=== PATIENT | male | born 1975 | race African-American/Black ===

== ENCOUNTER 2017-04-12 13:25 | Emergency (ER) | payer BC, OTHER ==
[~2017-04-12] VITALS: Ht 182.9 cm; Wt 128.4 kg
[~2017-04-12 13:25] MED LIST: ALBUTEROL17 GM INH; AMOXICILLIN PO; BACTRIM DS TABL1 TA1 PO; BACTRIM DS TABL1 TA2 PO; BENZONATATE PO; BLOOD PRESSURE; BP MED PO; CHOLESTEROL PILL; COLCRYS0.6 MG PO; DICLOFENAC PO; DICLOXAXILLIN250 MG PO; DOXYCYCLINE PO; FLEXERIL10 M1 PO; FLEXERIL10 MG PO; GUAIFENESIN-CO480 ML PO; HCTZ; HCTZ PO; HIGH BLOOD PRESSURE; HYDROCHLOROTHIA25 MG PO; INDOCIN SR75 MG PO; INDOMETHACIN25 MG PO; LISINOPRIL PO; LISINOPRIL10 MG PO; MOTRIN600 MG PO; NO MEDICATIONS; PANTOPRAZOLE SO40 MG PO; PERCOCET 5-3251 TAB PO; PHENERGAN W/CO120 ML PO; PREDNISONE10 MG PO; PRILOSEC PO; TUSSIONEX PENN473 ML PO; TYLENOL #3 PO; ULTRAM PO; VIBRAMYCIN100 M1 PO; VICODIN 5/1 TAB 5/50 PO; VICODIN 5/500 T1 TAB PO; VOLTAREN50 MG PO; VOLTAREN75 MG PO; ZITHROMAX PO; [UNRECOGNIZED DRUG - REMARK]
== END 2017-04-12 16:06 | disposition home or self-care (01) ==
LOC: CFTX 13:25 → CED 13:25 → CFTX 16:03
DX: S61.210A Laceration without foreign body of right index finger without damage to nail, initial encounter (principal); F17.200 Nicotine dependence, unspecified, uncomplicated; W26.0XXA Contact with knife, initial encounter; Y92.009 Unspecified place in unspecified non-institutional (private) residence as the place of occurrence of the external cause; Z23 Encounter for immunization
CPT/HCPCS: 12001; 90471; 90715; 99283

== ENCOUNTER 2017-04-21 16:15 | Emergency (ER) | payer BC, OTHER ==
[~2017-04-21] VITALS: Ht 182.9 cm; Wt 128.4 kg
== END 2017-04-21 17:05 | disposition home or self-care (01) ==
LOC: CED 16:15 → CFTX 16:15
DX: S61.210D Laceration without foreign body of right index finger without damage to nail, subsequent encounter (principal)
CPT/HCPCS: 99281

== ENCOUNTER 2017-06-01 20:06 | Emergency (ER) | payer BC, OTHER ==
[~2017-06-01] VITALS: Ht 188 cm; Wt 129.3 kg
== END 2017-06-01 23:25 | disposition home or self-care (01) ==
LOC: CED 20:06 → CFTX 20:06
DX: J02.9 Acute pharyngitis, unspecified (principal); R59.0 Localized enlarged lymph nodes; I10 Essential (primary) hypertension; K21.9 Gastro-esophageal reflux disease without esophagitis; J45.909 Unspecified asthma, uncomplicated; M10.9 Gout, unspecified; Z88.5 Allergy status to narcotic agent; F17.210 Nicotine dependence, cigarettes, uncomplicated
CPT/HCPCS: 87651; 99283

== ENCOUNTER 2017-06-02 09:09 | Emergency (ER) | payer BC, OTHER ==
[~2017-06-02] VITALS: Ht 182.9 cm; Wt 129.3 kg
--- NOTE | ~2017-06-02 | CT114 ---
[facility] A Service of [facility] RADIOLOGY TEXT RESULTS PATIENT: SEAN APARICIO LOCATION: [facility] : 75 UNIT #: [id number] AGE: [address]: Buffy Aponte MD SEX: M ORDER DR: [id number] [facility]. [place], [place] [address] [id number] E MR#: [id number] Acc #: [id number] NAME: SEAN APARICIO : 1975 SEX: M STUDY DATE/TIME: 06/02/2017 11:24 UNIT: [facility] ROOM: STUDY DESCRIPTION: CT Soft Tissue Neck W Cont Attending Physician: Buffy Aponte M.D. Ordering Physician: Buffy Aponte M.D. Primary Care Physician: Jefferson Harley M.D. MEDICAL IMAGING REPORT This report is preliminary unless electronic signature is present EXAM Soft tissue neck CT with contrast, 06/02/2017 PROCEDURE Axial contrast-enhanced soft tissue neck CT with multiplanar reformats. This CT exam was performed with one or more of the following radiation dose reduction techniques: automatic exposure control, adjustment of mA and/or kV according to patient size, and iterative reconstruction. COMPARISON Cervical spine CT dated 06/25/2010. CLINICAL HISTORY Left side submental pain and swelling for 2 days. FINDINGS There is soft tissue swelling and submental fat induration and there is slight asymmetric hyperdensity in the left submandibular salivary gland which appears perhaps slightly thickened. There is a tiny calcification in the anterior floor of the mouth on the left near the orifice of [place]'s duct. The parotid glands are normal and the right submandibular salivary gland is normal. No abnormal calcifications are seen along the course of the right [place]'s duct or either Stensen's duct. Mildly prominent cervical lymph nodes are seen, left slightly greater than right. There is no abnormal fluid collection. There is question right thyroid nodule. IMPRESSION 1. There is no abscess or drainable fluid collection or bone erosion or destruction. There is no dental or periodontal abnormality but there STS. [facility] A Service of [facility] & [facility] RADIOLOGY TEXT RESULTS PATIENT: SEAN APARICIO LOCATION: [facility] #: [id number] : 75 UNIT #: [id number] AGE: [address]: Buffy Aponte MD SEX: M ORDER DR: is a tiny calcification in the anterior floor of the mouth on the left, likely at the distal orifice of [place]'s duct, indicating that the changes in the left submental region are due to sialoadenitis and there is mild asymmetric hyperdensity in the left submandibular salivary gland as well. 2. The parotid glands and right submandibular gland and their corresponding ducts are normal. Minimally prominent left greater than right cervical adenopathy, likely reactive. 3. Bilateral thyroid fullness, question right thyroid nodule or nodules. Recommend followup outpatient thyroid ultrasound. Dictated by... Ignacio Acosta M.D. THIS IS AN ELECTRONICALLY VERIFIED REPORT Ignacio Acosta M.D. at 06/06/2017 7:33 AM AMPARO/belen TD: 06/03/2017 00:07 JOB #: [id number] MEDICAL IMAGING REPORT Page 1 of 1 COPY
[2017-06-02 11:07] LABS: BASOPHIL# 0.1 X10e3 (0-0.3); BASOPHIL% 0.8 % (0-2.5); EOSINOPHIL# 0.2 X10e3 (0-0.7); EOSINOPHIL% 3.8 % (0.0-7.0); HEMATOCRIT 44.2 % (38.0-50.0); HEMOGLOBIN 14.8 gm/dL (13.0-16.0); LYMPHOCYTE# 1.1 X10e3 (1.0-3.5); LYMPHOCYTE% 16.7 % (17.0-45.0); MEAN CELL VOLUME 89.7 FL (83-96); MEAN CORPUSCULAR HEMOGLOBIN 30.1 PG (28-34); MEAN CORPUSCULAR HGB CONC 33.5 g/dL (30-36); MEAN PLATELET VOLUME 8.4 FL (6.5-11.5); MONOCYTE# 0.5 X10e3 (0-1.0); MONOCYTE% 8.1 % (3.0-12.0); NEUTROPHIL# 4.6 X10e3 (1.5-7.1); NEUTROPHIL% 70.6 % (40-75); PLATELET COUNT 192 X10e3 (140-420); RED BLOOD COUNT 4.93 X10e (3.90-5.60); RED CELL DISTRIBUTION WIDTH 13.7 % (11.0-15.5); WHITE BLOOD COUNT 6.5 X10e3 (4.0-10.5)
[2017-06-02 11:08] LABS: DIFF IND NO
[2017-06-02 11:48] LABS: BILIRUBIN, DIRECT 0.2 mg/dL (0.0-0.2); BILIRUBIN,INDIRECT 0.8 mg/dL (0.0-0.9); BUN/CREATININE RATIO 11.53; CREATININE SERUM 1.3 mg/dL (0.6-1.4); GLOM FILT RATE Estimated 78.6 mL/min (>60); POTASSIUM 3.8 mmol/L (3.5-5.1); PROTEIN TOTAL SERUM 6.9 g/dL (6.0-8.3)
[2017-06-02 13:10] LABS: POC - CREATININE 1.16 mg/dL (0.64-1.27); POC - GFR >60.0 mL/min (>60)
== END 2017-06-02 13:39 | disposition home or self-care (01) ==
LOC: CED 09:09
PROVIDERS: Emergency Medicine
DX: K11.21 Acute sialoadenitis (principal); I10 Essential (primary) hypertension; K21.9 Gastro-esophageal reflux disease without esophagitis; M10.9 Gout, unspecified; J45.909 Unspecified asthma, uncomplicated; F17.210 Nicotine dependence, cigarettes, uncomplicated; Z98.890 Other specified postprocedural states; Z88.5 Allergy status to narcotic agent
CPT/HCPCS: 36415; 70491; 80048; 80076; 82565; 85025; 99284; Q9967